=== PATIENT | male | born 1965 | race Caucasian/White ===

== ENCOUNTER 2017-05-29 12:03 | Emergency (ER) | payer MEDICAID ==
[~2017-05-29] VITALS: Ht 177.8 cm; Wt 81.9 kg
[2017-05-29] MEDS ORDERED: ONDANSETRON 2MG/ML, 2ML ONE (13:53)
[2017-05-29] MEDS ORDERED: FAMOTIDINE 20 MG/2 ML ONE (13:53)
[2017-05-29] MEDS ORDERED: MAALOX/HYOSCYAMINE/LIDOCAINE 45 ML BTL ONE (13:53)
[2017-05-29] MEDS ORDERED: MORPHINE SULFATE 4 MG/ML, 1ML ONE (13:53)
[2017-05-29] MEDS ORDERED: MORPHINE SULFATE 4 MG/ML, 1ML IVPush PRN (14:00)
[2017-05-29] MEDS ORDERED: SODIUM CHLORIDE FLUSH 10ML SYR IVF ONE (14:00)
[2017-05-29] MEDS ORDERED: FAMOTIDINE 20 MG/2 ML IVP ONE (14:00)
[2017-05-29] MEDS ORDERED: SODIUM CHLORIDE 0.9% 1,000ML IVBOLUS ONE (14:00)
[2017-05-29] MEDS ORDERED: ONDANSETRON 2MG/ML, 2ML IVPush ONE (14:00)
[2017-05-29] MEDS ORDERED: MAALOX/HYOSCYAMINE/LIDOCAINE 45 ML BTL PO ONE (14:00)
[2017-05-29 14:09] LABS: HEMATOCRIT 52.8 % (39.2-51.8); HEMOGLOBIN 17.8 g/dL (13.7-18.0); WHITE BLOOD COUNT 12.4 x10^3/uL (3.4-10)
[2017-05-29 14:21] LABS: BLOOD UREA NITROGEN 14 mg/dL (7-18)
[2017-05-29 14:25] LABS: ASPARTATE AMINO TRANSFERASE 13 U/L (15-37)
[2017-05-29] MEDS ORDERED: OMNIPAQUE 350 MG/ML, 100ML BOTTLE ONE (15:29)
[2017-05-29 16:05] VITALS: BP 146/107
== END 2017-05-29 16:22 | disposition home or self-care (01) ==
LOC: ED 16:16
DX: K29.00 Acute gastritis without bleeding (principal); K25.3 Acute gastric ulcer without hemorrhage or perforation; R11.2 Nausea with vomiting, unspecified
CPT/HCPCS: 36415; 71010; 74177; 80053; 83690; 85025; 86677; 96361; 96374; 96375; 99285; J2405; J7030; Q9967; S0028